=== PATIENT | male | born 1995 | race Caucasian/White ===

== ENCOUNTER 2020-08-18 01:18 | Emergency (ER) | payer OTHER, SELFPAY ==
[2020-08-18] VITALS (18 sets, daily range): BP systolic 127–145; BP diastolic 79–91; PULSE 73–94; RESP 14–19; TEMP 37.2; O2SAT 95–100
--- NOTE | ~2020-08-18 | XR_ITS ---
EXAMINATION: XR chest 1V portable INDICATION: Chest pain and fever TECHNIQUE: Portable AP chest at 0419 hours COMPARISON: None available FINDINGS: Subtle patchy opacities are present in the lung bases. There is no pleural effusion or pneu mothorax. The cardiomediastinal silhouette is normal. The visualized osseous structures are unremarka ble. IMPRESSION: 1. Subtle patchy opacities of the lung bases, likely pneumonia. Reviewed, dictated and finalized at location A. SLITTER
--- NOTE | 2020-08-18 01:36 | ECG_ITS ---
Measurements Intervals [place] Rate: 96 P: 52 NE: 132 QRS: 61 QRSD: 104 T: 40 QT: 331 QTc: 419 Interpretive Statements SINUS RHYTHM INCOMPLETE RIGHT BUNDLE BRANCH BLOCK BORDERLINE ECG Electronically Signed On 08-18-2020 9:00:08 NURSE CARE MANAGER by Isaac Campos D.O.
[2020-08-18 01:59] LABS: Basophils Percent Auto 0.3 % (0.2-1.2); Hematocrit 47.9 % (42.0-52.0); Hemoglobin 15.8 g/dL (14.0-18.0); Immature Granulocyte Absolute 0.13 K/mm3 (0.00-0.031); Immature Granulocyte Percent A 2.1 % (0-0.5); Lymphocytes Absolute Auto 0.79 K/mm3 (0.9-3.2); Lymphocytes Percent Auto 12.7 % (18.3-44.2); Mean Corpuscular Hemoglobin 28.7 pg (26-34); Mean Corpuscular Volume 86.9 fl (80-100); Mean Platelet Volume 9.5 fl (7.4-10.4); Monocytes Absolute Auto 0.2 K/mm3 (0.1-0.6); Monocytes Percent Auto 3.1 % (2.6-8.5); Neutrophils Absolute Auto 5.1 K/mm3 (1.3-6.7); Neutrophils Percent Auto 81.8 % (45.5-73.1); Platelet Count Result 184 k/mm3 (150-375); Red Blood Count 5.51 M/mm3 (4.6-6.20); Red Cell Distribution Width 11.9 % (11.5-14.5); White Blood Count 6.2 K/mm3 (4.5-10.0)
[2020-08-18 02:12] LABS: Prothrombin Time 13.4 Seconds (11.1-14.7)
[2020-08-18 02:13] LABS: Partial Thromboplastin Time 32.3 SECONDS (22.3-36.8)
[2020-08-18 02:14] LABS: Anion Gap 11 mmol/L (8-16); Blood Urea Nitrogen 12 mg/dL (9-20); Calcium 9.9 mg/dL (8.4-10.2); Carbon Dioxide 29 mmol/L (22-30); Chloride 101 mmol/L (98-107); Estimated Glomerular Filt Rate > 60; Glucose 122 mg/dL (75-110); Potassium 3.9 mmol/L (3.4-5.0); Sodium 141 mmol/L (137-145)
[2020-08-18 02:26] LABS: Troponin I < 0.012 ng/mL (0.000-0.034)
[2020-08-18 05:32] LABS: Troponin I < 0.012 ng/mL (0.000-0.034)
--- NOTE | 2020-08-18 05:49 | ED.CHESTPAIN ---
HPI - Chest Pain General Chief Complaint: Chest Pain Stated Complaint: chest pain, tingling in arms, exposed to covid Time Seen by Provider: 08/18/20 04:23 Source: patient Mode of arrival: ambulatory Limitations: no limitations History of Present Illness HPI narrative: This patient is a 25 year old healthy male who presents for evaluation of possible covid and chest pain. He reports that developed possible COVID symptoms 5 days ago. He developed congestion , fatigue, loss of taste of smell and cough. He denies fever or chills. Last night around 8 pm he developed a feeling of cold in his chest and all his extremities. THis lasted for a few minutes. He reports this atypical chest pain has resolved.He dnies sob or calf tenderness. He denies sick contacts. He denies family cardiac history. MD complaint: chest pain Timing of current episode: episodic and now resolved Onset: during rest Pain location: substernal Review of Systems Review of Systems: All systems reviewed & are unremarkable except as noted in HPI and below Constitutional: Constitutional: Denies chills, Reports fatigue and Denies fever(s) ENT: Reports nasal congestion Cardiovascular: Cardiovascular: Reports chest pain and Denies rapid heart rate Respiratory: Respiratory: Reports cough, Denies dyspnea and Denies wheezing Gastrointestinal: Gastrointestinal: Denies abdominal pain, Denies nausea and Denies vomiting Musculoskeletal: Musculoskeletal: Reports myalgias PMFSH Past Medical History Medical History (Updated 08/18/20 @ 06:36 by Randa Patino MD) Patient denies medical problems Surgical History Surgical History (Updated 08/18/20 @ 05:50 by Randa Patino MD) No pertinent past surgical history Social History Social History (Updated 08/18/20 @ 05:50 by Randa Patino MD) Smoking status: Never smoker Exam Const: General: no acute distress and alert Orientation/consciousness: patient oriented x3 HENMT: Head: normocephalic and atraumatic Ears: TM's normal bilaterally Face and sinus: face symmetric Mouth: Yes Normal oral and palatal mucosa present, Yes lip normal, Yes oropharynx normal and Yes moist mucous membranes Eyes: EOM: EOMs intact bilaterally Chest: Chest palpation & inspection: normal inspection of the chest and no tenderness Resp: Effort & Inspection: normal respiratory effort and no retractions Auscultation: clear to auscultation bilaterally Cardio: Rate: regular rate Rhythm: regular rhythm Heart sounds: no murmurs GI: GI Palp: Yes Soft to palpation, No Tenderness to palpation present (GI), No Guarding due to palpation present (GI), No Rigid due to palpation and No Hernia present Auscultation: normal bowel sounds Skin: General skin exam: normal color Rashes: no rashes Neuro: General: patient oriented x3 and moves all extremities Extrem: General: normal to inspection and no pedal edema Psych: Mental Status: mental status grossly normal Affect: normal affect Course Reevaluation(s) Reevaluation #1: PAtient presented with possible covid symptoms and atypical chest pain. I discussed plan to covid test. He is stable. PERC negative Date: 08/18/20 Time: 06:32 Vital Signs Vital signs: Vital Signs Temperature 99.0 F 08/18/20 01:29 Pulse Rate 94 08/18/20 01:29 Respiratory Rate 18 08/18/20 01:29 Blood Pressure 145/86 H 08/18/20 01:29 Temperature 99.0 F 08/18/20 01:29 Pulse Rate 90 08/18/20 04:19 Respiratory Rate 16 08/18/20 04:19 Blood Pressure 145/89 H 08/18/20 04:19 Pulse Oximetry 99 08/18/20 04:19 MDM - Chest Pain Lab Data Attestation: I reviewed the patient's lab results. Result diagrams: 08/18/20 01:42 08/18/20 01:42 Labs: Lab Results 08/18/20 08/18/20 08/18/20 Range/Units 01:41 01:42 01:42 WBC 6.2 (4.5-10.0) K/mm3 RBC 5.51 (4.6-6.20) M/mm3 Hgb 15.8 (14.0-18.0) g/dL Hct 47.9 (42.0-52.0) % MCV 86.9
[2020-08-18 23:54] LABS: SARS-CoV-2 RNA PCR Positive
== END 2020-08-18 07:32 | disposition home or self-care (01) ==
PROVIDERS: Emergency Provider General Practice
DX: U07.1 COVID-19 (principal); R07.89 Other chest pain; I45.10 Unspecified right bundle-branch block
CPT/HCPCS: 36415; 71045; 80048; 84484; 85025; 85610; 85730; 87635; 93005; 99284; C9803; U0003

== ENCOUNTER 2023-10-25 14:38 | Emergency (ER) | payer SELFPAY ==
[2023-10-25 14:45] VITALS: BP 153/89; PULSE 96; RESP 16; TEMP 36.4; O2SAT 100
--- NOTE | 2023-10-25 15:07 | ECG_ITS ---
Measurements Intervals [place] Rate: 74 P: 38 SC: 153 QRS: 73 QRSD: 103 T: 44 QT: 347 QTc: 386 Interpretive Statements SINUS RHYTHM INCOMPLETE RIGHT BUNDLE BRANCH BLOCK BORDERLINE ECG COMPARED TO ECG 08/18/2020 01:27:34 NO SIGNIFICANT CHANGES Electronically Signed On 10-25-2023 17:46:50 PROJECT CONSTRUCTION ASSISTANT MANAGER by Isaac Campos D.O.
--- NOTE | 2023-10-25 15:09 | ED.CHESTPAIN ---
HPI - Chest Pain General Chief Complaint: Upper Respiratory Infection Stated Complaint: Chest pressure Time Seen by Provider: 10/25/23 14:56 Source: patient and RN notes reviewed Mode of arrival: ambulatory Limitations: no limitations History of Present Illness HPI narrative: Patient presents today complaining of intermittent left-sided chest pressure the last several days with intermittent belching and, ?rumbling? in his stomach. He describes these symptoms as a, ?chest cold. ? Denies cough, congestion, rhinorrhea, or any other sick symptoms. Denies shortness of breath. Denies numbness or tingling in the extremities, dizziness or lightheadedness, nausea or vomiting. He has tried no medication for symptoms prior to arrival. states patient has had these symptoms intermittently since August. Related Data Home Medications Medication Instructions Recorded Confirmed No Home Medications 10/25/23 10/25/23 Allergies Allergy/AdvReac Type Severity Reaction Status Date / Time No Known Allergies Allergy Verified 10/25/23 14:50 Review of Systems Review of Systems: CONSTITUTIONAL: Denies body aches, fever, chills, or sweats. EYES: Denies visual changes, redness, or discharge. ENT: Denies rhinorrhea, congestion, sore throat, or otalgia. CARDIOVASCULAR:+ left chest pressure RESPIRATORY: Denies cough or dyspnea. GASTROINTESTINAL: Denies abdominal pain, nausea, vomiting, or diarrhea.+ intermittent belching GENITOURINARY: Denies dysuria or hematuria. SKIN: Denies rash, itching, or wounds. MUSCULOSKELETAL: Denies back pain, joint pain, or myalgia. NEUROLOGIC: Denies headache, numbness, tingling, or weakness. PSYCH: Denies depression or anxiety. [facility] Past Medical History Medical History Patient denies medical problems Surgical History Surgical History No pertinent past surgical history Social History Social History (Reviewed 10/25/23 @ 15:11 by Dominga Stone, [facility], ) Smoking status: Never smoker Comments At time of signature, I have reviewed and agree with nursing past medical, surgical, social and family history unless otherwise noted. Please see nursing chart for further information. There is no relevant family history pertinent to the presenting complaint Exam Narrative: GENERAL: Well-appearing, well-nourished, and in no acute distress. HEAD: Normocephalic, atraumatic. EYES: EOMI. No redness or drainage. Conjunctivae normal. ENT: Mucous membranes pink and moist. NECK: Normal AROM. Supple. No lymphadenopathy. CHEST: No respiratory distress. Clear to auscultation. Chest is nontender. HEART: Regular rate and rhythm. No murmur appreciated. Normal peripheral pulses. ABDOMEN: Soft, nontender, nondistended, normal active bowel sounds. MUSCULOSKELETAL: No bony tenderness. EXTREMITIES: Normal range of motion. No edema. SKIN: Warm, dry, no rash. Capillary refill normal. Normal skin turgor. NEURO: No focal deficits. Alert and oriented x3. Gait steady. PSYCH: Normal affect. No signs of depression or anxiety. Course Course Emergency Course: 1530-discussed patient with collaborating physician, Dr. Cody. Recommend ER transfer for further evaluation. Discussed recommendation with patient. Level of Care: Express Care Visit Vital Signs Vital signs: Vital Signs Temperature 97.5 F L 10/25/23 14:45 Pulse Rate 96 10/25/23 14:45 Respiratory Rate 16 10/25/23 14:45 Blood Pressure 153/89 H 10/25/23 14:45 Pulse Oximetry 100 10/25/23 14:45 Oxygen Delivery Room Air 10/25/23 14:45 Temperature 97.5 F L 10/25/23 14:45 Pulse Rate 96 10/25/23 14:45 Respiratory Rate 16 10/25/23 14:45 Blood Pressure 153/89 H 10/25/23 14:45 Pulse Oximetry 100 10/25/23 14:45 Oxygen Delivery Room Air 10/25/23 14:45 Reviewed Transfer Transfered to: [facility]
== END 2023-10-25 15:58 | disposition short-term general hospital (02) ==
PROVIDERS: Emergency Provider Nurse Practitioner
DX: R07.9 Chest pain, unspecified (principal); I45.10 Unspecified right bundle-branch block
CPT/HCPCS: 93005; 99213; G0463

== ENCOUNTER 2023-10-25 16:24 | Emergency (ER) | payer SELFPAY ==
--- NOTE | ~2023-10-25 | XR_ITS ---
EXAMINATION: XR chest 2V DATE: 10/25/2023 17:07 INDICATION: Chest pain. TECHNIQUE: Frontal and lateral views of the chest were obtained. COMPARISON: Chest single view 08/18/2020 FINDINGS: There is no pneumonia, pleural effusion, or pneumothorax. The heart size is normal. IMPRESSION: 1. No acute cardiopulmonary disease. Reviewed, dictated and finalized at location E. HEAD PUMPER
--- NOTE | 2023-10-25 16:25 | ECG_ITS ---
Measurements Intervals [place] Rate: 67 P: 26 VT: 161 QRS: 60 QRSD: 103 T: 31 QT: 360 QTc: 382 Interpretive Statements SINUS RHYTHM INCOMPLETE RIGHT BUNDLE BRANCH BLOCK DELAYED PRECORDIAL R/S TRANSITION BORDERLINE T WAVE ABNORMALITY- ANTERIOR LEADS BORDERLINE ECG COMPARED TO ECG 10/25/2023 15:17:27 NO SIGNIFICANT CHANGES Electronically Signed On 10-26-2023 6:39:20 LIME SLAKER by Isaac Campos D.O.
[2023-10-25 16:30] VITALS: BP 159/85; PULSE 95; RESP 20; TEMP 37.1; O2SAT 100
[2023-10-25 16:40] LABS: Basophils Percent Auto 0.6 % (0.2-1.2); Eosinophils Percent Auto 0.2 % (0-4.4); Hematocrit 48.4 % (42.0-52.0); Hemoglobin 15.5 g/dL (14.0-18.0); Immature Granulocyte Absolute 0.12 K/mm3 (0.00-0.031); Immature Granulocyte Percent A 1.8 % (0-0.5); Lymphocytes Absolute Auto 1.32 K/mm3 (0.9-3.2); Lymphocytes Percent Auto 19.8 % (18.3-44.2); Mean Corpuscular Hemoglobin 28.5 pg (26-34); Mean Corpuscular Volume 89.1 fl (80-100); Mean Platelet Volume 9.2 fl (7.4-10.4); Monocytes Absolute Auto 0.3 K/mm3 (0.1-0.6); Monocytes Percent Auto 4.5 % (2.6-8.5); Neutrophils Absolute Auto 4.9 K/mm3 (1.3-6.7); Neutrophils Percent Auto 73.1 % (45.5-73.1); Platelet Count Result 235 k/mm3 (150-375); Red Blood Count 5.43 M/mm3 (4.6-6.20); Red Cell Distribution Width 12.7 % (11.5-14.5); White Blood Count 6.7 K/mm3 (4.5-10.0)
[2023-10-25 16:51] LABS: Partial Thromboplastin Time 30.1 SECONDS (22.3-36.8); Prothrombin Time 13.9 Seconds (11.1-14.7)
[2023-10-25 16:52] LABS: Alanine Aminotransferase 19 U/L (6-50); Albumin Level 4.9 g/dL (3.5-5.1); Alkaline Phosphatase 65 U/L (38-126); Anion Gap 10 mmol/L (8-16); Aspartate Amino Transferase 30 U/L (17-59); Bilirubin,Total 1.3 mg/dL (0.2-1.3); Blood Urea Nitrogen 11 mg/dL (9-20); Carbon Dioxide 30 mmol/L (22-30); Chloride 101 mmol/L (98-107); Estimated CRCL calculation 105 ml/min; Estimated Glomerular Filt Rate > 60; Glucose 111 mg/dL (65-110); Lipase 60 U/L (23-300); Potassium 3.5 mmol/L (3.4-5.0); Sodium 141 mmol/L (137-145)
[2023-10-25 17:03] LABS: Troponin I < 0.012 ng/mL (0.000-0.034)
[2023-10-25] MEDS: ASPIRIN 81 MG CHEWABLE TABLET 324 MG PO (18:45)
[2023-10-25 18:50] VITALS: PULSE 73
[2023-10-25 18:52] VITALS: BP 123/71; PULSE 102; RESP 18; O2SAT 98
[2023-10-25] MEDS: BELLADONNA ALK/PHENOB ELIX 10 ML, MAG HYDROX/ALUMINUM HYD/SIMETH 30 ML, LIDOCAINE HCL 2... PO (19:43)
[2023-10-25] MEDS: PANTOPRAZOLE SODIUM IV 40 MG VIAL IV PUSH (19:43)
[2023-10-25 20:14] LABS: Troponin I < 0.012 ng/mL (0.000-0.034)
--- NOTE | 2023-10-25 20:29 | ED.GENADULT ---
HPI - General Adult General Chief complaint: Chest Pain Stated complaint: chest pressure Time Seen by Provider: 10/25/23 19:10 History of Present Illness HPI narrative: Patient is a 28-year-old gentleman who presents to the emergency department with chief complaint of chest pain. Patient reports for the last week he has been having an intermittent discomfort in his chest reports that he also has a burning like sensation in his chest as well and his epigastric region. The patient reports no shortness of breath denies diaphoresis reports pain with his medical conditions. Related Data Allergies Allergy/AdvReac Type Severity Reaction Status Date / Time No Known Allergies Allergy Verified 10/25/23 14:50 Review of Systems Review of Systems: A 10 system review of systems was completed on the patient and is negative except for what is stated in the HPI. Nursing and ancillary documentation was reviewed. PMFSH Past Medical History Medical History Patient denies medical problems Surgical History Surgical History No pertinent past surgical history Social History Social History Smoking status: Never smoker Exam Narrative: GENERAL: Well-appearing, well-nourished, and in no acute distress. HEAD: Normocephalic, atraumatic. EYES: PERRLA and EOMI. ENT: Nares clear, no rhinorrhea or epistaxis. Mucous membranes moist. NECK: Supple. CHEST: Clear to auscultation. No respiratory distress. HEART: Regular rate and rhythm. No murmur heard. Normal peripheral pulses. ABDOMEN: Soft, nontender, nondistended, normal active bowel sounds. EXTREMITIES: Normal range of motion. No edema. SKIN: Warm, dry, no rash. NEURO: No focal deficits. Alert and oriented x3. PSYCH: Normal mood and affect. Course Vital Signs Vital signs: Vital Signs Temperature 37.1 C 10/25/23 16:30 Pulse Rate 95 10/25/23 16:30 Respiratory Rate 20 10/25/23 16:30 Blood Pressure 159/85 H 10/25/23 16:30 Pulse Oximetry 100 10/25/23 16:30 Oxygen Delivery Room Air 10/25/23 16:30 Temperature 37.1 C 10/25/23 16:30 Pulse Rate 102 H 10/25/23 18:52 Respiratory Rate 18 10/25/23 18:52 Blood Pressure 123/71 10/25/23 18:52 Pulse Oximetry 98 10/25/23 18:52 Oxygen Delivery Room Air 10/25/23 16:30 Medical Decision Making MDM Narrative Medical decision making narrative: Differential diagnosis includes atypical chest pain, gastroesophageal reflux disease, esophageal spasm, ACS EKG showed no acute ischemic changes Initial troponin was negative rest of the labs showed no acute abnormalities 3 hour delta troponin was negative lipase was negative. Chest x-ray showed no focal findings Vital Signs Vital Signs: Vital Signs Temperature 37.1 C 10/25/23 16:30 Pulse Rate 95 10/25/23 16:30 Respiratory Rate 20 10/25/23 16:30 Blood Pressure 159/85 H 10/25/23 16:30 Pulse Oximetry 100 10/25/23 16:30 Oxygen Delivery Room Air 10/25/23 16:30 Temperature 37.1 C 10/25/23 16:30 Pulse Rate 102 H 10/25/23 18:52 Respiratory Rate 18 10/25/23 18:52 Blood Pressure 123/71 10/25/23 18:52 Pulse Oximetry 98 10/25/23 18:52 Oxygen Delivery Room Air 10/25/23 16:30 Lab Data 10/25/23 16:32 10/25/23 16:32 Labs: Lab Results 10/25/23 10/25/23 Range/Units 16:32 19:46 WBC 6.7 (4.5-10.0) K/mm3 RBC 5.43 (4.6-6.20) M/mm3 Hgb 15.5 (14.0-18.0) g/dL Hct 48.4 (42.0-52.0) % MCV 89.1 (80-100) fl MCH 28.5 (26-34) pg MCHC 32.0 (32-36) g/dl RDW 12.7 (11.5-14.5) % Plt Count 235 (150-375) k/mm3 MPV 9.2 (7.4-10.4) fl Immature Gran % (Auto) 1.8 H (0-0.5) % Neut % (Auto) 73.1 (45.5-73.1) % Lymph % (Auto) 19.8 (18.3-44.2) % [place] % (Auto) 4.5
[2023-10-25 20:41] VITALS: BP 126/77; PULSE 67; RESP 18; O2SAT 100
== END 2023-10-25 20:42 | disposition home or self-care (01) ==
PROVIDERS: Emergency Medicine; Emergency Provider Emergency Medicine
DX: R07.89 Other chest pain (principal); I45.10 Unspecified right bundle-branch block; R94.31 Abnormal electrocardiogram [ECG] [EKG]
CPT/HCPCS: 36415; 71046; 80053; 83690; 84484; 85025; 85610; 85730; 93005; 96374; 99284; A9270; C9113